=== PATIENT | male | born 1975 | race Caucasian/White ===

== ENCOUNTER 2022-01-16 13:51 | Emergency (ER) | payer OTHER, SELFPAY ==
--- NOTE | 2022-01-16 13:56 | XR_ITS ---
FINAL REPORT CLINICAL HISTORY: FALL FINDINGS: 3 views of the right knee were obtained. There is no acute fracture or dislocation. There are mild hypertrophic changes at the medial joint margin. There are small osteophytes along the undersurface of the patella. A small joint effusion is present. There are multiple well corticated os ossific densities in the posterior joint space with the largest measuring up to 11 mm consistent with intra-articular loose bodies. There may be smaller densities in the anterior joint space measuring up to 2 mm. IMPRESSION: Small joint effusion. Anterior and posterior loose bodies. No acute bony abnormality. Reviewed, Interpreted and Dictated by Jordon Bryant MD Transcribed by Josef Washington Authenticated and [facility]
[2022-01-16 14:10] VITALS: BP 145/81; PULSE 76; RESP 18; TEMP 36.6; O2SAT 98; BMI 27.2
--- NOTE | 2022-01-16 14:30 | EXP.UTC ---
Discharge Plan Disposition Patient Disposition: Home, Self-Care Condition: Good Prescriptions Prescriptions: New ibuprofen [IBU] 800 mg tablet 800 mg PO TIDP PRN (Reason: Moderate Pain) Qty: 20 0RF Referrals Follow up/Referrals: Nick Rush DO [Staff Physician] - See instructions (Call office for appointment) Provider,Referral, [Primary Care Provider] - See instructions Activity Restrictions/Add. Instructions Additional Instructions/Restrictions: *No weight bearing *RICE, Rest the extremity, Ice 15-20 minutes 3-4 times daily, Compress- wear the siddharth wrap as discussed as much as possible to help reduce swelling and pain, Elevate the extremity when at rest *Knee immobilizer is for support and help control swelling, Be sure that is not to tight but not to loose either *Elevate when resting? *Ibuprofen 600-800mg every 6-8 hours as needed for pain an inflammation. If need something more can take Tylenol in between doses of Ibuprofen to help Immediately follow up with your family doctor for new or worsening of symptoms, or no noticeable improvement over the next 3-5 days Call Orthopedic office for appointment You can call back to the [facility] later this evening for the official reading of your xray Clinical Impressions Clinical Impression: Effusion of knee Qualifiers: Laterality: left Qualified Code(s): M25.462 - Effusion, left knee Instructions Patient Instructions: How to Use Crutches, DI for Knee Effusion Print Language Print Language: Greek Discharge ED Provider: Maude Doty [facility] HPI General Stated complaint: WC 01/15@work@1700 pain in Rt knee Mode of Arrival: Ambulatory Source of Information: Patient Limitations: No Limitations Time Seen by Provider: 01/16/22 14:31 Description of Symptoms (Recalled from Triage Doc. by RN): PATIENT C/O RIGHT KNEE PAIN AFTER INJURING IT AT WORK YESTERDAY HEENT Symptoms (Recalled from RN notes): No Resp Symptoms (Recalled from RN notes): No Skin Symptoms (Recalled from RN notes): No MS Symptoms (Recalled from RN notes): Yes Functional Status (Recalled from RN notes): WNL History of Present Illness Provider Complaint: used lead architect to communicate with kyrgyz speaking patient He states that he was at work yesterday when he stepped in hole in the ground and twisted his right knee and he felt a crack State that since then he has been having swelling and pain in his right knee ever since States that today he was hurting worse so boss brought him in to get him checked Related Data Previous Rx's Medication Instructions Recorded ibuprofen 800 mg tablet (IBU) 800 mg PO TIDP PRN Moderate Pain 01/16/22 #20 tabs Allergies Allergy/AdvReac Type Severity Reaction Status Date / Time No Known Allergies Allergy Verified 01/16/22 15:43 Worker's Comp Is this a Worker's Comp case?: No [facility] Disclaimer: The information contained in this section may have been updated after the patient was seen, as this information can be updated by other users. Medical History (Updated 01/16/22 @ 15:43 by Maude Doty APRN) No significant past medical history Social History (Updated 01/16/22 @ 14:23 by Fabienne Velazquez RN) Smoking Status: Unknown if ever smoked alcohol intake: never current occupational status: employed Travel in the last 8 weeks: None ROS Obtained: Yes All systems reviewed & no additional complaints except as documented and Yes Systems reviewed as appropriate & no additional complaints except as documented Constitutional Constitutional: Reports system reviewed and no additional complaints, except as documented and Reports as per HPI ENT Ears, Nose, Mouth, and Throat: Reports system reviewed and no additional complaints, except as documented and Reports as per HPI Cardiovascular Cardiovascular: Reports system reviewed and no additional complaints, except as documented and Reports as per HPI Respiratory Respiratory: Reports system revi
[2022-01-16 16:00] VITALS: BP 145/81; PULSE 76; RESP 18; TEMP 36.6; O2SAT 98
== END 2022-01-16 16:08 | disposition home or self-care (01) ==
PROVIDERS: Emergency Provider Nurse Practitioner
DX: M25.462 Effusion, left knee (principal)
CPT/HCPCS: 73562; 99212; G0463

== ENCOUNTER 2022-02-11 11:22 | Emergency (ER) | payer SELFPAY ==
--- NOTE | 2022-02-11 13:10 | EXP.UTC ---
Discharge Plan Disposition Patient Disposition: Home, Self-Care Condition: Good Prescriptions Prescriptions: New prednisone 10 mg tablet 10 mg PO BID 3 Days Qty: 6 0RF amoxicillin [amoxicillin] 500 mg tablet 500 mg PO TID 10 Days Qty: 30 0RF No Action ibuprofen [IBU] 800 mg tablet 800 mg PO TIDP PRN (Reason: Moderate Pain) Qty: 20 0RF Referrals Follow up/Referrals: Provider,Referral, MD [Primary Care Provider] - See instructions Activity Restrictions/Add. Instructions Additional Instructions/Restrictions: Drink plenty of fluids. Take tylenol or ibuprofen for pain or fever. Take the medications as directed. Follow up with your regular doctor. GO TO THE ER FOR ANY WORSENING SYMPTOMS Clinical Impressions Clinical Impression: Otitis media Instructions Patient Instructions: Middle Ear Infection Discharge ED Provider: Kvng Aguilar [facility] General Stated complaint: Right Earache,Congestion,Cough Time Seen by Provider: 02/11/22 13:10 History of Present Illness Provider Complaint: He states that for the past 1 week he has had bilateral ear pain. Related Data Previous Rx's Medication Instructions Recorded ibuprofen 800 mg tablet (IBU) 800 mg PO TIDP PRN Moderate Pain 01/16/22 #20 tabs amoxicillin 500 mg tablet 500 mg PO TID 10 days #30 tabs 02/11/22 prednisone 10 mg tablet 10 mg PO BID 3 days #6 tabs 02/11/22 Allergies Allergy/AdvReac Type Severity Reaction Status Date / Time No Known Allergies Allergy Verified 02/11/22 13:24 [facility] Disclaimer: The information contained in this section may have been updated after the patient was seen, as this information can be updated by other users. Medical History No significant past medical history Social History Smoking Status: Current some day smoker alcohol intake: never current occupational status: employed Travel in the last 8 weeks: None ROS Obtained: Yes All systems reviewed & no additional complaints except as documented Constitutional Constitutional: Denies chills, Reports fever(s) and Reports poor appetite Eyes Eyes: Denies eye discharge ENT Ears, Nose, Mouth, and Throat: Denies ear discharge, Reports otalgia, Denies hearing loss, Denies sinus pain and Reports sore throat Cardiovascular Cardiovascular: Denies chest pain and Denies dyspnea Respiratory Respiratory: Denies chest congestion, Reports cough and Denies dyspnea Gastrointestinal Gastrointestingal: Denies abdominal pain, diarrhea, nausea or vomiting Musculoskeletal Musculoskeletal: Denies arthralgias Integumentary/Breasts Skin/Breast: Denies rash Physical Exam General General appearance: alert and in no apparent distress Head Head exam: atraumatic, normocephalic and normal inspection Eye Eye exam: Present normal appearance; Absent PERRL or EOMI ENT ENT exam: Present mucous membranes moist and normal external ear exam Expanded ENT Exam TM/Canal exam: Bilateral TM: erythema, bulging and effusion Nose exam: Absent sinus tenderness Nasal speculum exam: Bilateral: normal Mouth exam: Present normal external inspection and other; Absent drooling Teeth exam: Present normal inspection Throat exam: Present tonsillar erythema and tonsillomegaly Neck Neck exam: Present normal inspection, full ROM and trachea midline; Absent tenderness, meningismus or lymphadenopathy Chest Chest inspection: Present normal inspection and symmetric chest wall rise; Absent tenderness Respiratory Respiratory exam: Present normal lung sounds bilaterally; Absent respiratory distress, wheezes or stridor Cardiovascular Cardiovascular exam: Present regular rate, normal rhythm and normal heart sounds; Absent tachycardia or irregular rhythm Abdominal Exam Abdominal exam: Present soft and normal bowel sounds; Absent distention, tenderness, guarding, rebound or rigidity Ext
[2022-02-11 13:20] VITALS: BP 135/82; PULSE 67; RESP 16; TEMP 36.7; O2SAT 98; BMI 33.3
[2022-02-11 13:27] LABS: UTC Influenza A Antigen Negative (Negative); UTC Influenza B Antigen Negative (Negative)
[2022-02-11 13:42] VITALS: BP 135/82; PULSE 67; RESP 16; TEMP 36.7
== END 2022-02-11 13:50 | disposition home or self-care (01) ==
PROVIDERS: Emergency Provider Nurse Practitioner Family
DX: H66.90 Otitis media, unspecified, unspecified ear (principal)
CPT/HCPCS: 87804; 99212; G0463